=== PATIENT | male | born 1970 | race Caucasian/White ===

== ENCOUNTER 2020-05-28 11:11 | Emergency (ER) | payer SELFPAY ==
[2020-05-28] MEDS ORDERED: OXYCODONE-ACETAMINOPHEN 5-325 MG TABLET PO ONE (11:32)
--- NOTE | 2020-05-28 11:34 | ER Document Report ---
ED Medical Screen (RME) - General Chief Complaint: Knee Pain Stated Complaint: KNEE PAIN Time Seen by Provider: 05/28/20 11:19 - HPI Notes: 05/28/20 11:32 49-year-old male with past medical history for recent quadruple bypass, hyp ertension, acute IA to the emergency department with complaints of progressively worsening right knee pain that began Friday. He states yesterday he was able to walk and stand on the knee but today he is not able to stand on it at all. He states the pain is gotten excruciatingly difficult to manage. He states from his CABG he had some oxycodone left over. He states he took one last night but it did not cover his pain. Does not have a history of gout. He does not remember falling or injuring the knee. He is never had a blood clot in his leg. He states that he is currently on 81 mg aspirin. His cardiothoracic surgeon had him on Plavix but has stopped him and is planning on starting him on Xarelto tomorrow. On brief medical screening exam patient is in moderate pain distress and has exquisite tenderness to palpation over the lateral aspect of the right knee. Does not seem to have any palpable cords. He does have a little bit of tenderness to his right calf. There is no erythema to the leg. I performed a brief medical screening exam on the patient determined that the patient needs further evaluation and management by main side provider. I have placed initial orders to help expedite care. - Related Data Allergies/Adverse Reactions: No Known Allergies Allergy (Verified 05/28/20 11:31) Physical Exam - Vital signs Vitals: Temp Pulse Resp BP Pulse Ox 98.9 F 84 16 137/91 H 100 05/28/20 11:18 05/28/20 11:18 05/28/20 11:18 05/28/20 11:18 05/28/20 11:18 Course - Vital Signs Vital signs: Temp Pulse Resp BP Pulse Ox 98.9 F 84 16 137/91 H 100 05/28/20 11:18 05/28/20 11:18 05/28/20 11:18 05/28/20 11:18 05/28/20 11:18
[2020-05-28 12:03] LABS: ABSOLUTE BASOPHILS # (AUTO) 0.1 10^3/uL (0.0-0.2); ABSOLUTE EOSINOPHILS # (AUTO) 0.4 10^3/uL (0.0-0.6); ABSOLUTE LYMPHOCYTES (AUTO) 1.4 10^3/uL (0.5-4.7); ABSOLUTE MONOCYTES (AUTO) 0.7 10^3/uL (0.1-1.4); BASOPHILS % (AUTO) 0.6 % (0-2); EOSINOPHILS % (AUTO) 4.5 % (0-6); HEMATOCRIT 42.4 % (37.9-51.0); HEMOGLOBIN 14.7 g/dL (13.5-17.0); LYMPHOCYTES % (AUTO) 16.4 % (13-45); MEAN CORPUSCULAR HGB CONC 34.6 g/dL (32.0-36.0); MEAN CORPUSCULAR VOLUME 84 fl (80-97); MONOCYTES % (AUTO) 8.5 % (3-13); PLATELET COUNT 320 10^3/uL (150-450); RED BLOOD COUNT 5.06 10^6/uL (4.35-5.55); RED CELL DISTRIBUTION WIDTH 13.8 % (11.5-14.0); TOTAL CELLS COUNTED % (AUTO) 100 %; WHITE BLOOD COUNT 8.6 10^3/uL (4.0-10.5)
--- NOTE | 2020-05-28 12:19 | RADIOLOGY REPORT (SQ) ---
EXAM DESCRIPTION: KNEE RIGHT 4 VIEWS IMAGES COMPLETED DATE/TIME: 05/28/2020 11:57 am REASON FOR STUDY: right knee pain COMPARISON: None. NUMBER OF VIEWS: Four views. TECHNIQUE: AP, lateral, and both oblique radiographic images acquired of the right knee. LIMITATIONS: None. FINDINGS: MINERALIZATION: Normal. BONES: No acute fracture or dislocation. No worrisome bone lesions. JOINT: No effusion. SOFT TISSUES: No soft tissue swelling. No radio-opaque foreign body. OTHER: No other significant finding. IMPRESSION: NEGATIVE STUDY OF THE RIGHT KNEE. NO RADIOGRAPHIC EVIDENCE OF ACUTE INJURY. TECHNICAL DOCUMENTATION: JOB ID: [id number] 2010 [employer]- All Rights Reserved Reading location - IP/workstation name: [email or web address]
[2020-05-28 12:33] LABS: ALBUMIN 4.9 g/dL (3.5-5.0); ALKALINE PHOSPHATASE 70 U/L (38-126); ANION GAP 14 (5-19); ASPARTATE AMINO TRANSFERASE 34 U/L (17-59); BILIRUBIN,TOTAL 0.4 mg/dL (0.2-1.3); BLOOD UREA NITROGEN 9 mg/dL (7-20); CALCIUM 10.8 mg/dL (8.4-10.2); CARBON DIOXIDE 26 mmol/L (22-30); CHLORIDE 102 mmol/L (98-107); GLUCOSE 97 mg/dL (75-110); POTASSIUM 4.9 mmol/L (3.6-5.0); TOTAL PROTEIN 8.3 g/dL (6.3-8.2); URIC ACID 6.9 mg/dL (3.5-8.5)
--- NOTE | 2020-05-28 13:11 | ER Document Report ---
ED Extremity Problem, Lower - General Chief Complaint: Knee Pain Stated Complaint: KNEE PAIN Time Seen by Provider: 05/28/20 11:19 Primary Care Provider: SANDY GARCIA JR, DO [ACTIVE PROVISIONAL STAFF] - Follow up as needed SNEHA COTTON MD [ACTIVE STAFF] - Follow up as needed RAVI MCCARTY DO [ACTIVE STAFF] - Follow up as needed Notes: Patient is a 49-year-old male with a history of quadruple bypass, hypertension, [place] events emergency department with a chief complaint of right knee pain. Patient reports on Friday which was 2 days ago he developed right anterior knee pain. Patient denies trauma or fall. Patient states over the past 2 days is gotten extremely worse. States that this area is tender to touch. Patient has not noticed any notable swelling or redness. Patient reports he had a quadruple bypass on April 122019 and that they did harvest a vein from his right medial thigh. He states there is no tenderness to this area. States that the wound has healed and there is no drainage. Patient states he does have some numbness to his right lower extremity, distal to the right knee but states that this has been present since his surgery. - Related Data Allergies/Adverse Reactions: No Known Allergies Allergy (Verified 05/28/20 11:31) Past Medical History - General Information source: Patient - Social History Smoking Status: Former Smoker Lives with: Family Family History: None Patient has homicidal ideation: No - Past Medical History Cardiac Medical History: Reports: Hx Heart Attack, Hx Hypertension Pulmonary Medical History: Reports: None EENT Medical History: Reports: None Neurological Medical History: Reports: None Endocrine Medical History: Reports: None Renal/ Medical History: Reports: None Malignancy Medical History: Reports None GI Medical History: Reports: None Musculoskeletal Medical History: Reports None Skin Medical History: Reports None Psychiatric Medical History: Reports: None Traumatic Medical History: Reports: None Infectious Medical History: Reports: None Past Surgical History: Reports: Hx Coronary Artery Bypass Graft Review of Systems - Review of Systems Constitutional: No symptoms reported EENT: No symptoms reported Cardiovascular: No symptoms reported Respiratory: No symptoms reported Gastrointestinal: No symptoms reported Genitourinary: No symptoms reported Male Genitourinary: No symptoms reported Musculoskeletal: See HPI Skin: No symptoms reported Hematologic/Lymphatic: No symptoms reported Neurological/Psychological: No symptoms reported Physical Exam - Vital signs Vitals: Temp Pulse Resp BP Pulse Ox 98.9 F 84 16 137/91 H 100 05/28/20 11:18 05/28/20 11:18 05/28/20 11:18 05/28/20 11:18 05/28/20 11:18 - Notes Notes: GENERAL: Well-appearing, well-nourished and in no acute distress. HEAD: Atraumatic, normocephalic. EYES: Pupils equal round and reactive to light, extraocular movements intact, sclera anicteric, conjunctiva are normal. ENT: TMs normal, nares patent, oropharynx clear without exudates. Moist mucous membranes. NECK: Normal range of motion, supple without lymphadenopathy or JVD. LUNGS: Breath sounds clear to auscultation bilaterally and equal. No wheezes rales or rhonchi. HEART: Regular rate and rhythm without murmurs, rubs or gallops. Midline vertical healed scar to center of chest. ABDOMEN: Soft, nontender, normoactive bowel sounds. No guarding, no rebound. No masses appreciated. BACK: No cervical, thoracic, lumbar midline tenderness. No saddle anesthesia, normal distal neurovascular exam. GENITOURINARY: Deferred. EXTREMITIES: Normal range of motion, no pitting or edema. No clubbing or cyanosis. NEUROLOGICAL: Cranial nerves II through XII grossly intact. Normal speech, normal gait. PSYCH: Normal mood, normal affect. SKIN: Warm, Dry, normal turgor, no rashes or lesions noted. Course - Vital Signs Vital signs: Temp Pulse Resp BP Pulse Ox 98.9 F 65 18 135/87 H 100 05/28/20 11:18 05/28/20 14:05 05/28/20 14:05 05/28/20 14:05 05/28/20 14:05 - Laboratory Result Diagrams: 05/28/20 11:40 05/28/20 11:40 Laboratory results interpreted by me: 05/28/20 11:40 Calcium 10.8 H Total Protein 8.3 H 05/28/20 19:43 Laboratory 05/28/20 05/28/20 11:40 11:40 WBC 8.6 RBC 5.06 Hgb 14.7 Hct 42.4 MCV 84 MCH 29.0 MCHC 34.6 RDW 13.8 Plt Count 320 Lymph % (Auto) 16.4 [place] % (Auto) 8.5 Eos % (Auto) 4.5 Baso % (Auto) 0.6 Absolute Neuts (auto) 6.0 Absolute Lymphs (auto) 1.4 Absolute Monos (auto) 0.7 Absolute Eos (auto) 0.4 Absolute Basos (auto) 0.1 Seg Neutrophils % 70.0 Sodium 141.7 Potassium 4.9 Chloride 102 Carbon Dioxide 26 Anion Gap 14 BUN 9 Creatinine 0.76 Est GFR ( Amer) > 60 Est GFR (MDRD) Non-Af > 60 Glucose 97 Uric Acid 6.9 Calcium 10.8 H Total Bilirubin 0.4 Direct Bilirubin 0.0 Neonat Total Bilirubin Not Reportable Neonat Direct Bilirubin Not Reportable Neonat Indirect Bili Not Reportable AST 34 ALT 30 Alkaline Phosphatase 70 Total Protein 8.3 H Albumin 4.9 - Diagnostic Test Radiology reviewed: Reports reviewed Radiology results interpreted by me: 05/28/20 19:43 Knee X-Ray 05/28/20 11:31 IMPRESSION: NEGATIVE STUDY OF THE RIGHT KNEE. NO RADIOGRAPHIC EVIDENCE OF ACUTE INJURY. Venous Doppler Study 05/28/20 11:31 IMPRESSION: NO EVIDENCE DVT OR SVT IN THE RIGHT LEG. Discharge - Discharge Clinical Impression: Right knee pain Qualifiers: Chronicity: acute Qualified Code(s): M25.561 - Pain in right knee Condition: Stable Disposition: HOME, SELF-CARE Additional Instructions: *Today are seen in the emergency department for right knee pain. Your Doppler ultrasound was negative for blood clot and your x-ray was negative for acute bony abnormality such as a fracture or dislocation. I have placed you in a knee immobilizing splint as this is your position of comfort and provided you with crutches. I have given you multiple orthopedic referrals, please call them tomorrow to schedule a follow-up appointment. Prior to starting anti-inflammatories please consult with your mattress stuffer due to your recent heart surgery. If you develop any redness, increasing swelling, inability to move the knee joint please return to the emergency department immediately. Referrals: SANDY GARCIA JR, DO [ACTIVE PROVISIONAL STAFF] - Follow up as needed SNEHA COTTON MD [ACTIVE STAFF] - Follow up as needed RAVI MCCARTY DO [ACTIVE STAFF] - Follow up as needed
[2020-05-28 14:05] VITALS: BP 135/87
--- NOTE | 2020-05-28 15:42 | RADIOLOGY REPORT (SQ) ---
EXAM DESCRIPTION: VENOUS UNILATERAL LOWER IMAGES COMPLETED DATE/TIME: 05/28/2020 3:28 pm REASON FOR STUDY: right knee/leg pain, recent CABG, only on 81 ASA COMPARISON: None. TECHNIQUE: Dynamic and static perez scale and color images acquired of the right leg venous system. S elected spectral images acquired with additional compression and augmentation maneuvers. The contrala teral common femoral vein and saphenofemoral junction were also imaged. Images stored on PACS. LIMITATIONS: None. FINDINGS: COMMON FEMORAL: Normal phasicity, compression and augmentation. No visualized echogenic ma terial on perez scale. No defects on color images. FEMORAL: Normal compression and augmentation. No visualized echogenic material on perez scale. No defe cts on color images. POPLITEAL: Normal compression, augmentation. No visualized echogenic material on perez scale. No defec ts on color images. CALF VESSELS: Normal compression, augmentation. No visualized echogenic material on perez scale. No de fects on color images. GSV and SSV: Greater saphenous ablated. Small saphenous patent. ANY DEEP VENOUS INSUFFICIENCY: Not evaluated. ANY EVIDENCE OF POPLITEAL CYST: No. OTHER: No other significant finding. CONTRALATERAL COMMON FEMORAL VEIN AND SAPHENOFEMORAL JUNCTION: Normal phasicity, compression and augmentation. No visualized echogenic material on perez scale. No de fects on color images. IMPRESSION: NO EVIDENCE DVT OR SVT IN THE RIGHT LEG. TECHNICAL DOCUMENTATION: JOB ID: [id number] 2010 [employer]- All Rights Reserved Reading location - IP/workstation name: [email or web address]
== END 2020-05-28 14:06 | disposition home or self-care (01) ==
LOC: ER 11:11
DX: M25.561 Pain in right knee (principal); I10 Essential (primary) hypertension; Z95.1 Presence of aortocoronary bypass graft; Z79.82 Long term (current) use of aspirin; I25.2 Old myocardial infarction
CPT/HCPCS: 36415; 80053; 84550; 85025; 93971; 99285